=== PATIENT | female | born 1975 | race Two or more races ===

== ENCOUNTER 2018-07-08 19:29 | Emergency (ER) | payer MEDICAID ==
[2018-07-08 20:10] VITALS: BP 124/71
[2018-07-08 21:05] LABS: APPEARANCE,URINE CLOUDY; BILIRUBIN,URINE NEGATIVE (NEGATIVE); COLOR,URINE YELLOW; GLUCOSE, URINE >=500 mg/dL (NEGATIVE); KETONES,URINE NEGATIVE (NEGATIVE); LEUKOCYTE ESTERASE,URINE LARGE (NEGATIVE); NITRITE,URINE NEGATIVE (NEGATIVE); PROTEIN,URINE >=500 mg/dL (NEGATIVE); URINE SPECIFIC GRAVITY 1.025; UROBILINOGEN,URINE NEGATIVE mg/dL (<2.0)
--- NOTE | 2018-07-08 21:44 | ER Document Report ---
HPI - HPI Time Seen by Provider: 07/08/18 20:46 Pain Level: 4 Notes: Patient is a 43-year-old female with a history of diabetes, on metformin and insulin, who presents to the ED complaining of increased urinary frequency, suprapubic pressure, voiding small amounts, and some discomfort with urination times 1 day. Patient states that she is not sexually active and has not had any vaginal discharge, odor, or bleeding. Denies any drug allergies. Patient states that her sugars have been running in the 200s recently. She has no other concerns or complaints. She is eating and drinking without difficulty. She is having normal bowel movements. Denies any headache, fever, URI, sore throat, chest pain, palpitations, syncope, cough, shortness of breath, wheeze, dyspnea, abdominal pain, nausea/vomiting/diarrhea, or rash. - ROS Systems Reviewed and Negative: Yes All other systems reviewed and negative - URINARY Urinary: REPORTS: Dysuria, Urgency, Frequency Past Medical History - Social History Smoking Status: Never Smoker Family History: Reviewed & Not Pertinent Patient has suicidal ideation: No Patient has homicidal ideation: No Endocrine Medical History: Reports: Hx Diabetes Mellitus Type 2 Renal/ Medical History: Denies: Hx Peritoneal Dialysis Past Surgical History: Reports: Hx Cholecystectomy, Hx Hysterectomy Vertical Provider Document - CONSTITUTIONAL Agree With Documented VS: Yes Notes: PHYSICAL EXAMINATION: GENERAL: Well-appearing, well-nourished and in no acute distress. LUNGS: Breath sounds clear to auscultation bilaterally and equal. No wheezes rales or rhonchi. HEART: Regular rate and rhythm without murmurs, rubs, gallops. ABDOMEN: Soft, nontender, nondistended abdomen. No guarding, no rebound. No masses appreciated. Normal bowel sounds present. No CVA tenderness bilaterally. : deferred Extremities: No cyanosis, clubbing, or edema b/l. Peripheral pulses 2+. Capillary refill less than 3 seconds. NEUROLOGICAL: Normal speech, normal gait. PSYCH: Normal mood, normal affect. SKIN: Warm, Dry, normal turgor, no rashes or lesions noted. - INFECTION CONTROL TRAVEL OUTSIDE OF THE [place] IN LAST 30 DAYS: No Course - Re-evaluation Re-evalutation: 07/08/18 22:12 Patient is an afebrile, well-hydrated M 43-year-old female who presents to the ED with dysuria and an acute UTI. Vitals are acceptable without significant tachycardia, tachypnea, or hypoxia. PE is otherwise unremarkable. Patient is nontoxic-appearing and is tolerating p.o. without difficulty. Accu-Chek was 240 's. See urinalysis results. Urine culture is pending. Patient's abdomen is soft and nontender and does not have any CVA tenderness associated. No further labs or imaging warranted at this time. Low suspicion for any acute abdomen, sepsis, meningitis, severe dehydration, respiratory compromise, DKA, HHS, or other systemic emergent condition at this time. Patient is aware that condition can change from initial presentation and she needs to monitor symptoms closely and seek medical attention with any acute changes. First dose of Keflex given p.o. today. I will send her home with a prescription for Keflex. Recheck with your PCM in 3-5 days. Return to the ED with any worsening /concerning symptoms otherwise as reviewed discharge. Patient is in agreement. - Vital Signs Vital signs: Temp Pulse Resp BP Pulse Ox 98.8 F 85 16 124/71 98 07/08/18 20:09 07/08/18 20:09 07/08/18 20:09 07/08/18 20:09 07/08/18 20:09 - Laboratory Laboratory results interpreted by me: 07/08/18 19:40 Urine Protein >=500 H Urine Glucose (UA) >=500 H Urine Blood LARGE H Ur Leukocyte Esterase LARGE H Discharge - Discharge Clinical Impression: Acute UTI (urinary tract infection), Dysuria Condition: Stable Disposition: HOME, SELF-CARE Instructions: Cephalexin ([facility]), Urinary Tract Infection ([facility]) Additional Instructions: Push fluids (i.e. water, cranberry juice) Proper hygenic technique Keep the skin clean Tylenol/ibuprofen as needed Take medications as directed Monitor glucose closely and continue medications as directed by PCM F/u with your PCM in 3-5 days for a recheck Consider consult with a Urologist for ongoing/worsening symptoms. Return to the ED with any worsening symptoms and/or development of fever, headache, chest pain, palpitations, syncope, shortness of breath, trouble breathing, abdominal pain, n/v/d, blood in stool/urine, loss of control of bowel /bladder, urinary retention, or other worsening symptoms that are concerning to you. Prescriptions: Cephalexin Monohydrate [Keflex 500 mg Capsule] 500 mg PO TID #21 capsule Referrals: [facility] [Provider Group] - Follow up as needed [facility] [Provider Group] - Follow up as needed
[2018-07-08] MEDS ORDERED: CEPHALEXIN 500 MG CAPSULE PO ONE (22:06)
== END 2018-07-08 22:50 | disposition home or self-care (01) ==
LOC: ER 19:29
DX: N39.0 Urinary tract infection, site not specified (principal); E11.9 Type 2 diabetes mellitus without complications; Z90.49 Acquired absence of other specified parts of digestive tract; Z90.710 Acquired absence of both cervix and uterus; Z79.4 Long term (current) use of insulin; Z79.84 Long term (current) use of oral hypoglycemic drugs
CPT/HCPCS: 81001; 81025; 82962; 87086; 87088; 87186; 99283